=== PATIENT | female | born 1995 | race Caucasian/White ===

== ENCOUNTER → 2018-08-30 | Outpatient (CLI) | payer OTHER ==
--- NOTE | 2018-08-30 09:45 | US ---
EXAMINATION TYPE: US kidneys/renal and bladder DATE OF EXAM: 08/30/2018 COMPARISON: NONE CLINICAL HISTORY: N30.20 Other chronic cystitis without hematuria. EXAM MEASUREMENTS: Right Kidney: 10.3 x 4.1 x 5.3 cm Left Kidney: 9.9 x 5.2 x 5.0 cm Right Kidney: No hydronephrosis or masses seen Left Kidney: No hydronephrosis or masses seen Bladder: wnl Bilateral Jets seen: yes There is no evidence for hydronephrosis at this point in time. No nephrolithiasis is seen. No orion s are identified. The urinary bladder is anechoic. Bilateral ureteral jets are seen. IMPRESSION: 1. No hydronephrosis or nephrolithiasis. 2. Urinary bladder is unremarkable and anechoic. Bilateral ureteral jets are seen.
== END | disposition home or self-care (01) ==
LOC: RADUSWWP 07:12
PROVIDERS: ATTEND Urology
DX: N30.20 Other chronic cystitis without hematuria (principal)
CPT/HCPCS: 76770

== ENCOUNTER → 2018-10-24 | Outpatient (CLI) | payer OTHER ==
--- NOTE | 2018-10-24 16:44 | US ---
EXAMINATION TYPE: US transvaginal DATE OF EXAM: 10/24/2018 COMPARISON: None CLINICAL HISTORY: 23-year-old female R10.2 Pelvic Pain. Pelvic and perineal pain x 2 years. Patient o n control. TECHNIQUE: Transvaginal (TV). Transvaginal sonographic images were medically necessary to better as sess the following anatomy: Uterus, ovaries. Patient was agreeable to proceeding immediately with tra nsvaginal exam due to incorrect patient prep. Bladder was not distended. Date of LMP: 10/01/2018 FINDINGS: EXAM MEASUREMENTS: Uterus: 6.7 x 4.3 x 3.9 cm Endometrial Stripe: 0.43 cm Right Ovary: 2.7 x 1.7 x 1.7 cm for a volume of 4.0 mL Left Ovary: 2.4 x 2.1 x 1.9 cm for a volume of 4.7 mL. 1. Uterus: Anteverted. Appears wnl. 2. Endometrium: appears wnl 3. Right Ovary: appears wnl 4. Left Ovary: appears wnl Follicular change in both ovaries. 5. Bilateral Adnexa: appears wnl 6. Posterior cul-de-sac: no fluid seen IMPRESSION: Normal follicular change in the ovaries. No specific sonographic abnormality of the pelvis by transva ginal scanning.
== END ==
LOC: RADUSWWP 14:18
PROVIDERS: ATTEND Family Medicine
DX: R10.2 Pelvic and perineal pain (principal)
CPT/HCPCS: 76830

== ENCOUNTER → 2020-03-05 | Outpatient (CLI) | payer OTHER ==
--- NOTE | 2020-03-05 11:03 | USB ---
Reason for exam: clinical finding. History: Family history of breast cancer in aunt at age 50. Indicated problem(s): palpable abnormality and non-bloody discharge in the left breast. Physical Findings: Nurse did not find any significant physical abnormalities on exam. US Breast BILAT Right complete breast ultrasound includes all four quadrants, the retroareolar region and axilla. Finding demonstrates no cystic or solid lesion seen. Left complete breast ultrasound includes all four quadrants, the retroareolar region and axilla. Finding demonstrates no cystic or solid lesion seen. These results were verbally communicated with the patient and result sheet given to the patient on 03/05/20. ASSESSMENT: Negative, BI-RAD 1 RECOMMENDATION: Routine screening mammogram of both breasts at age 35. Manage patient on a clinical basis.
== END | disposition home or self-care (01) ==
LOC: RADUSWWP 09:04
PROVIDERS: ATTEND Family Medicine
DX: N64.52 Nipple discharge (principal)

== ENCOUNTER 2020-08-11 14:37 | Emergency (ER) | payer OTHER ==
[2020-08-11] MEDS ORDERED: ONDANSETRON 4 MG/2 ML VIAL IVP STA (14:48)
[2020-08-11] MEDS ORDERED: MORPHINE SULFATE 2 MG/ML SYRINGE IVP STA (14:48)
[2020-08-11] MEDS ORDERED: SODIUM CHLORIDE 0.9% 1,000 ML IV STA (14:48)
[2020-08-11] MEDS ORDERED: ASPIRIN 81 MG PO STA (14:48)
--- NOTE | 2020-08-11 14:59 | ED ---
Chest Pain HPI - General Source: patient, family, RN notes reviewed Mode of arrival: ambulatory <Casey Mcdaniels - Last Filed: 08/11/20 16:38> <Pooja Coulter - Last Filed: 08/13/20 13:39> - General Chief Complaint: Chest Pain Stated Complaint: Chest Pain Time Seen by Provider: 08/11/20 14:44 - History of Present Illness Initial Comments: Patient is a [age] female presents emergency right complaining of chest pain that started this morning. 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 She noted that when she laid still on her back the pain went away but yesterday she will the underside the pain came back. She noted that is almost as if she tries these any of the muscles in her chest the pain comes back with a vengeance. She noted that nothing is really help the pain at home except lying still. She was in no apparent distress or discomfort during the examination interview also in bed. She did state that she was a little bit anxiety due to chest pain. Her mother was with her and noted that her primary care noted that if they have ever have any chest pain to come the emergency department to get immediately evaluated for any cardiac complications such as dissection. She denied any shortness of breath, nausea vomiting diarrhea constipation fever fatigue chills weakness numbness tingling. (Casey Mcdaniels) - Related Data Allergies Allergy/AdvReac Type Severity Reaction Status Date / Time No Known Allergies Allergy Verified 08/11/20 14:42 Review of Systems ROS Other: All systems not noted in ROS Statement are negative. <Casey Mcdaniels - Last Filed: 08/11/20 16:38> ROS Other: All systems not noted in ROS Statement are negative. <Pooja Coulter - Last Filed: 08/13/20 13:39> ROS Statement: Those systems with pertinent positive or pertinent negative responses have been documented in the HPI. EKG Findings - EKG Comments: EKG Findings:: Ventricular rate 57 bpm, OK interval 130 ms, QRS duration 82 ms, QT/QTc 420/40 ms, PareT axes 57/58/38. Line sinus bradycardia with sinus arrhythmia, otherwise normal ECG. <Casey Mcdaniels - Last Filed: 08/11/20 16:38> Past Medical History Additional Past Medical History / Comment(s): [place] History of Any Multi-Drug Resistant Organisms: None Reported Past Surgical History: Ear Surgery Past Psychological History: No Psychological Hx Reported Smoking Status: Vaper Past Alcohol Use History: Daily Past Drug Use History: None Reported <Casey Mcdaniels - Last Filed: 08/11/20 16:38> General Exam Limitations: no limitations General appearance: alert, in no apparent distress Head exam: Present: atraumatic, normocephalic, normal inspection Eye exam: Present: normal appearance, PERRL, EOMI. Absent: scleral icterus, conjunctival injection, periorbital swelling ENT exam: Present: normal exam, mucous membranes moist Neck exam: Present: normal inspection. Absent: tenderness, meningismus, lymp hadenopathy Respiratory exam: Present: normal lung sounds bilaterally. Absent: respiratory distress, wheezes, rales, rhonchi, stridor Cardiovascular Exam: Present: regular rate, normal rhythm, normal heart sounds. Absent: systolic murmur, diastolic murmur, rubs, gallop, clicks GI/Abdominal exam: Present: soft, normal bowel sounds. Absent: distended, tenderness, guarding, rebound, rigid Extremities exam: Present: normal inspection, full ROM, normal capillary refill. Absent: tenderness, pedal edema, joint swelling, calf tenderness Neurological exam: Present: alert, oriented X3, CN II-XII intact Psychiatric exam: Present: normal affect, normal mood Skin exam: Present: warm, dry, intact, normal color. Absent: rash <Casey Mcdaniels - Last Filed: 08/11/20 16:38> Course Vital Signs 08/11/20 08/11/20 14:39 17:18 Temperature 98.4 F 97.9 F Pulse Rate 71 68 Respiratory 20 16 Rate Blood Pressure 141/99 128/88 O2 Sat by Pulse 99 99 Oximetry Chest Pain MDM - Wells Criteria Clinical Symptoms of DVT: (0) No No Alternative Diagnosis: (0) No Immobilization of Surgery in Previous 4 Weeks: (0) No Previous DVT/PE: (0) No Hemoptysis: (0) No - PERC Rule Heart Rate < 100: (1) Yes g: (0) No No Prior History pf DVT/PE: (0) No No Recent Trauma or Surgery: (0) No Hemoptysis: (0) No No Clinical Signs Suggesting DVT: (0) No - MELISSA Score Age > 65: (0) No Aspirin use within the Past 7 Days: (0) No <Casey Mcdaniels - Last Filed: 08/11/20 16:38> <Pooja Coulter - Last Filed: 08/13/20 13:39> - MDM Patient is a [age] female complaining of chest pain with a history of Marilia- Danlos syndrome Cardiac workup: Labs, EKG, personnel monitor, CT angiography of the chest, 1 L normal saline, pain medication, nausea medication, chewable aspirin ordered. Chest x-ray: Normal CT angiography of chest:Negative exam. No evidence of pulmonary embolism. Case discussed with Dr. Coulter, decided was located discharge patient home with follow-up to primary care. (Casey Mcdaniels) I was available for consultation in the emergency department. The history and physical exam were done by the midlevel provider. I was consulted for this patients care. I reviewed the case with the midlevel provider and based on their presentation of the patient, I agree with the assessment, medical decision making and plan of care as documented. Chart was dictated using [employer] dictation software. Attempts were made to correct any dictation errors however some typographical errors may persist. Patient was seen during a national state of emergency due to the Covid-19 pandemic. (Pooja Coulter) Disposition Is patient prescribed a controlled substance at d/c from ED?: No Time of Disposition: 16:40 <Casey Mcdaniels - Last Filed: 08/11/20 16:38> <Pooja Coulter - Last Filed: 08/13/20 13:39> Clinical Impression: Costochondritis, Chest pain Disposition: HOME SELF-CARE Condition: Stable Instructions (If sedation given, give patient instructions): Chest Pain (ED), Costochondritis (ED) Additional Instructions: Please return to the Emergency Department if symptoms worsen or any other concerns. Follow-up with primary care, we recommend getting an echocardiogram. Follow-up with pocket and pulley machine operator if you have 1. Avoid any activities that induce pain. Take [id number] pain medication as needed for management. Referrals: Jose Luis Miranda MD [Primary Care Provider] - 1-2 days
[2020-08-11 15:33] LABS: Basophils % (A) 1 %; Eosinophils # (A) 0.1 k/uL (0-0.7); Eosinophils % (A) 3 %; HCT 38.5 % (34.0-46.0); HGB 13.4 gm/dL (11.4-16.0); Lymphocytes # (A) 1.4 k/uL (1.0-4.8); Lymphocytes % (A) 27 %; MCH 31.1 pg (25.0-35.0); MCHC 34.8 g/dL (31.0-37.0); MCV 89.4 fL (80.0-100.0); Mean Platelet Volume 10.2; Monocytes # (A) 0.4 k/uL (0-1.0); Monocytes % (A) 7 %; Neutrophils # (A) 3.2 k/uL (1.3-7.7); Neutrophils % (A) 62 %; Platelet Count 191 k/uL (150-450); RBC 4.31 m/uL (3.80-5.40); RDW 12.4 % (11.5-15.5); WBC 5.2 k/uL (3.8-10.6)
[2020-08-11 15:34] LABS: Appearance,Urine Clear (Clear); Bilirubin,Urine Negative (Negative); Color,Urine Yellow; Glucose,Urine (UA) Negative (Negative); Ketones,Urine Negative (Negative); PH, Urine 7.5 (5.0-8.0); Protein,Urine Negative (Negative)
[2020-08-11 15:35] LABS: Blood,Urine Negative (Negative); Leukocyte Esterase,Urine Negative (Negative); Nitrite,Urine Negative (Negative); Urobilinogen,Urine <2.0 mg/dL (<2.0)
[2020-08-11 15:42] LABS: ALT 23 U/L (4-34); AST 32 U/L (14-36); African American GFR (CKD) >90 (>60 ml/min/1.73 sqM); Albumin 4.6 g/dL (3.5-5.0); Alkaline Phosphatase 33 U/L (38-126); Anion Gap 7 mmol/L; Blood Urea Nitrogen 11 mg/dL (7-17); Calcium 9.4 mg/dL (8.4-10.2); Carbon Dioxide 27 mmol/L (22-30); Chloride 104 mmol/L (98-107); Glucose 97 mg/dL (74-99); Magnesium 1.9 mg/dL (1.6-2.3); Non-African American GFR(CKD) >90 (>60 ml/min/1.73 sqM); Sodium 138 mmol/L (137-145); Total Bilirubin 0.9 mg/dL (0.2-1.3); Total Protein 7.5 g/dL (6.3-8.2)
[2020-08-11 15:44] LABS: Potassium 4.7 mmol/L (3.5-5.1)
--- NOTE | 2020-08-11 15:44 | XR ---
EXAMINATION TYPE: XR chest 2V DATE OF EXAM: 08/11/2020 COMPARISON: NONE HISTORY: Chest pain TECHNIQUE: FINDINGS: Heart and mediastinum are normal. Lungs are clear. Diaphragm is normal. Bony thorax appears normal. IMPRESSION: Normal chest.
[2020-08-11 15:48] LABS: D-Dimer <0.17 mg/L FEU (<0.60); Partial Thromboplastin Time 23.9 sec (22.0-30.0); Prothrombin Time 10.4 sec (9.0-12.0)
--- NOTE | 2020-08-11 16:17 | CT ---
EXAMINATION TYPE: CT angio chest DATE OF EXAM: 08/11/2020 COMPARISON: None HISTORY: Chest pain, Marilia-Danlos CT DLP: 209.7 mGycm Automated exposure control for dose reduction was used. CONTRAST: Performed with IV Contrast, patient injected with 100 mL of Isovue 370. Images obtained from the diaphragm to the floor the pelvis with IV contrast and 3-D post processed im ages. The lungs are clear of infiltrate. There is no evidence of a pulmonary mass. There is no pleural effu [place]. There is no pericardial effusion. Heart size is normal. There is no mediastinal adenopathy. There is 2 x 1.5 cm soft tissue density anterior mediastinum cons istent with residual thymic tissue. Thoracic aorta is intact. There is no aneurysm or dissection. The ascending aorta measures 2.5 cm. There is normal contrast opacification of the pulmonary arteries. There are no filling defects. Upper abdominal soft tissues are intact. The thoracic spine is intact. There is no compression fractu re. Sternum is intact. The ribs appear intact. IMPRESSION: Negative exam. No evidence of pulmonary embolism.
[2020-08-11 17:20] VITALS: BP 128/88; PULSE 68; RESP 16; TEMP 97.9
== END 2020-08-11 17:20 | disposition home or self-care (01) ==
LOC: EC 14:37
DX: M94.0 Chondrocostal junction syndrome [Tietze] (principal); Q79.60 Ehlers-Danlos syndrome, unspecified; F17.290 Nicotine dependence, other tobacco product, uncomplicated
CPT/HCPCS: 36415; 93005; 85379; 80053; 83735; 84484; 85025; 85610; 85730; 81003; 71046; 71275; 99285; 96374; 96375; J2405; J2270; Q9967

== ENCOUNTER 2021-04-24 17:09 | Emergency (ER) | payer OTHER ==
[2021-04-24 18:44] VITALS: TEMP 98.2
[2021-04-24 19:09] LABS: Appearance,Urine Cloudy (Clear); Bacteria,Urine Rare /hpf; Bilirubin,Urine Negative (Negative); Blood,Urine Negative (Negative); Color,Urine Light Yellow; Glucose,Urine (UA) Negative (Negative); Ketones,Urine Negative (Negative); Leukocyte Esterase,Urine Large (Negative); Nitrite,Urine Negative (Negative); PH, Urine 7.5 (5.0-8.0); Protein,Urine Negative (Negative); RBC,Urine 1 /hpf (0-5); Specific Gravity,Urine 1.008 (1.001-1.035); Squamous Epithelial Cell,Urine 9 /hpf (0-4); Urobilinogen,Urine <2.0 mg/dL (<2.0); WBC,Urine 17 /hpf (0-5)
[2021-04-24 20:38] LABS: Basophils % (A) 0 %; Eosinophils # (A) 0.1 k/uL (0-0.7); Eosinophils % (A) 1 %; HCT 39.5 % (34.0-46.0); Lymphocytes # (A) 2.5 k/uL (1.0-4.8); Lymphocytes % (A) 25 %; MCHC 35.4 g/dL (31.0-37.0); MCV 90.5 fL (80.0-100.0); Mean Platelet Volume 9.7; Monocytes # (A) 0.4 k/uL (0-1.0); Monocytes % (A) 5 %; Neutrophils # (A) 6.5 k/uL (1.3-7.7); Neutrophils % (A) 66 %; Platelet Count 301 k/uL (150-450); RBC 4.36 m/uL (3.80-5.40); RDW 12.7 % (11.5-15.5); WBC 9.7 k/uL (3.8-10.6)
[2021-04-24 20:48] LABS: ALT 34 U/L (4-34); AST 35 U/L (14-36); African American GFR (CKD) >90 (>60 ml/min/1.73 sqM); Albumin 4.6 g/dL (3.5-5.0); Alkaline Phosphatase 53 U/L (38-126); Amylase 92 U/L (30-110); Anion Gap 8 mmol/L; Blood Urea Nitrogen 9 mg/dL (7-17); Calcium 9.7 mg/dL (8.4-10.2); Carbon Dioxide 27 mmol/L (22-30); Chloride 102 mmol/L (98-107); Glucose 95 mg/dL (74-99); Lipase 246 U/L (23-300); Non-African American GFR(CKD) >90 (>60 ml/min/1.73 sqM); Potassium 3.9 mmol/L (3.5-5.1); Sodium 137 mmol/L (137-145); Total Bilirubin 0.9 mg/dL (0.2-1.3); Total Protein 7.5 g/dL (6.3-8.2)
[2021-04-24] MEDS ORDERED: KETOROLAC 15 MG/ML 1 ML VIAL IVP STA (20:52)
[2021-04-24] MEDS ORDERED: SODIUM CHLORIDE 0.9% 1,000 ML IV STA (20:52)
--- NOTE | 2021-04-24 21:49 | CT ---
EXAMINATION TYPE: CT abdomen pelvis w con DATE OF EXAM: 04/24/2021 COMPARISON: 05/08/2015 HISTORY: lower abd pain x [address] DLP: 673.5 mGycm Automated exposure control for dose reduction was used. TECHNIQUE: Helical acquisition of images was performed from the lung bases through the pelvis. CONTRAST: Performed without Oral Contrast and with IV Contrast, patient injected with 100 mL of Isovu e 300. FINDINGS: LUNG BASES: No significant abnormality is appreciated. LIVER/GB: No significant abnormality is appreciated. PANCREAS: No significant abnormality is seen. SPLEEN: No significant abnormality is seen. ADRENALS: No significant abnormality is seen. KIDNEYS: No significant abnormality is seen. PERITONEAL CAVITY: No pneumoperitoneum. No peritoneal fluid. RETROPERITONEAL ADENOPATHY: None visualized REPRODUCTIVE ORGANS: No significant abnormality is seen URINARY BLADDER: No significant abnormality is seen. PELVIC ADENOPATHY: None visualized. OSSEOUS STRUCTURES: No significant abnormality is seen. BOWEL: The stomach, duodenum, and small bowel have normal appearance. The colon is not dilated. Howev er, there is colonic redundancy and there is a prominent volume of colonic stool. OTHER: No acute vascular findings. IMPRESSION: NO ACUTE PROCESS. However, there is colonic redundancy and a prominent volume of colonic stool.
[2021-04-24] MEDS ORDERED: MAGNESIUM CITRATE 296 ML BOTTLE PO STA (22:08)
--- NOTE | 2021-04-24 22:09 | ED ---
General Adult HPI - General Chief complaint: Abdominal Pain Stated complaint: Abd pain, bladder pain Time Seen by Provider: 04/24/21 20:11 Source: patient, RN notes reviewed Mode of arrival: ambulatory Limitations: no limitations - History of Present Illness Initial comments: 25-year-old female presents to the emergency room for a chief complaint of abd ominal pain. Patient states for years she has had lower abdominal pain. Patient states that it feels like maybe her bladder is distended. States he feels like a pressure in her lower abdomen. Patient has seen a specialist for this in the past and told it was maybe cystitis after she was having dysuria without evidence of a urinary tract infection. However pain has been persistent. Patient states that something is not right and she finally needs answers after this long of dealing with these symptoms. Denies fevers. Denies nausea vomiting.Patient has no other complaints at this time including shortness of breath, chest pain, abdominal pain, nausea or vomiting, headache, or visual changes. - Related Data Allergies Allergy/AdvReac Type Severity Reaction Status Date / Time milk Allergy Nausea & Verified 04/24/21 18:41 Vomiting & Diarrhea egg AdvReac Nausea & Verified 04/24/21 18:41 Vomiting Review of Systems ROS Statement: Those systems with pertinent positive or pertinent negative responses have been documented in the HPI. ROS Other: All systems not noted in ROS Statement are negative. Past Medical History Additional Past Medical History / Comment(s): [place] History of Any Multi-Drug Resistant Organisms: None Reported Past Surgical History: Ear Surgery Past Psychological History: No Psychological Hx Reported Smoking Status: Vaper Past Alcohol Use History: Daily Past Drug Use History: None Reported General Exam Limitations: no limitations General appearance: alert, in no apparent distress Head exam: Present: atraumatic Eye exam: Present: normal appearance, PERRL, EOMI. Absent: scleral icterus, conjunctival injection ENT exam: Present: normal exam, mucous membranes moist Neck exam: Present: normal inspection, full ROM. Absent: tenderness Respiratory exam: Present: normal lung sounds bilaterally. Absent: respiratory distress, wheezes Cardiovascular Exam: Present: regular rate, normal rhythm, normal heart sounds GI/Abdominal exam: Present: soft, tenderness (Mild lower abdominal tenderness), normal bowel sounds. Absent: distended Course Vital Signs 04/24/21 18:41 Temperature 98.2 F Pulse Rate 73 Respiratory 18 Rate Blood Pressure 139/97 O2 Sat by Pulse 100 Oximetry Medical Decision Making - Medical Decision Making Patient's mother is requesting a CAT scan. Patient's abdomen is mildly tender. No significant tenderness. CBC CMP unremarkable. Urinalysis contaminated with squamous cells. CT abdomen and pelvis with contrast shows no acute process however there is colonic redundancy and a prominent volume of colonic stool. We will refer patient to GI and try magnesium citrate. She will return here for any worsening symptoms. - Lab Data Result diagrams: 04/24/21 20:27 04/24/21 20:27 Lab Results 04/24/21 04/24/21 04/24/21 Range/Units 18:50 18:50 20:27 WBC 9.7 (3.8-10.6) k/uL RBC 4.36 (3.80-5.40) m/uL Hgb 14.0 (11.4-16.0) gm/dL Hct 39.5 (34.0-46.0) % MCV 90.5 (80.0-100.0) fL MCH 32.0 (25.0-35.0) pg MCHC 35.4 (31.0-37.0) g/dL RDW 12.7 (11.5-15.5) % Plt Count 301 (150-450) k/uL MPV 9.7 Neutrophils % 66 % Lymphocytes % 25 % Monocytes % 5 % Eosinophils % 1 % Basophils % 0 % Neutrophils # 6.5 (1.3-7.7) k/uL Lymphocytes # 2.5 (1.0-4.8) k/uL Monocytes # 0.4 (0-1.0) k/uL Eosinophils # 0.1 (0-0.7) k/uL Basophils # 0.0 (0-0.2) k/uL Sodium (137-145) mmol/L Potassium (3.5-5.1) mmol/L Chloride (98-107) mmol/L Carbon Dioxide (22-30) mmol/L Anion Gap mmol/L BUN (7-17) mg/dL Creatinine (0.52-1.04) mg/dL Est GFR (CKD-EPI)AfAm (>60 ml/min/1.73 sqM) Est GFR (CKD-EPI)NonAf (>60 ml/min/1.73 sqM) Glucose (74-99) mg/dL Plasma Lactic Acid Alen (0.7-2.0) mmol/L Calcium (8.4-10.2) mg/dL Total Bilirubin (0.2-1.3) mg/dL AST (14-36) U/L ALT (4-34) U/L Alkaline Phosphatase (38-126) U/L Total Protein (6.3-8.2) g/dL Albumin (3.5-5.0) g/dL Amylase (30-110) U/L Lipase (23-300) U/L Urine Color Light Yellow Urine Appearance Cloudy H (Clear) Urine pH 7.5 (5.0-8.0) Ur Specific [place] 1.008 (1.001-1.035) Urine Protein Negative (Negative) Urine Glucose (UA) Negative (Negative) Urine Ketones Negative (Negative) Urine Blood Negative (Negative) Urine Nitrite Negative (Negative) Urine Bilirubin Negative (Negative) Urine Urobilinogen <2.0 (<2.0) mg/dL Ur Leukocyte Esterase Large H (Negative) Urine RBC 1 (0-5) /hpf Urine WBC 17 H (0-5) /hpf Ur Squamous Epith Cells 9 H (0-4) /hpf Urine Bacteria Rare H (None) /hpf Urine HCG, Qual Not Detected (Not Detectd) 04/24/21 04/24/21 Range/Units 20:27 20:27 WBC (3.8-10.6) k/uL RBC (3.80-5.40) m/uL Hgb (11.4-16.0) gm/dL Hct (34.0-46.0) % MCV (80.0-100.0) fL MCH (25.0-35.0) pg MCHC (31.0-37.0) g/dL RDW (11.5-15.5) % Plt Count (150-450) k/uL MPV Neutrophils % % Lymphocytes % % Monocytes % % Eosinophils % % Basophils % % Neutrophils # (1.3-7.7) k/uL Lymphocytes # (1.0-4.8) k/uL Monocytes # (0-1.0) k/uL Eosinophils # (0-0.7) k/uL Basophils # (0-0.2) k/uL Sodium 137 (137-145) mmol/L Potassium 3.9 (3.5-5.1) mmol/L Chloride 102 (98-107) mmol/L Carbon Dioxide 27 (22-30) mmol/L Anion Gap 8 mmol/L BUN 9 (7-17) mg/dL Creatinine 0.58 (0.52-1.04) mg/dL Est GFR (CKD-EPI)AfAm >90 (>60 ml/min/1.73 sqM) Est GFR (CKD-EPI)NonAf >90 (>60 ml/min/1.73 sqM) Glucose 95 (74-99) mg/dL Plasma Lactic Acid Alen 0.7 (0.7-2.0) mmol/L Calcium 9.7 (8.4-10.2) mg/dL Total Bilirubin 0.9 (0.2-1.3) mg/dL AST 35 (14-36) U/L ALT 34 (4-34) U/L Alkaline Phosphatase 53 (38-126) U/L Total Protein 7.5 (6.3-8.2) g/dL Albumin 4.6 (3.5-5.0) g/dL Amylase 92 (30-110) U/L Lipase 246 (23-300) U/L Urine Color Urine Appearance (Clear) Urine pH (5.0-8.0) Ur Specific [place] (1.001-1.035) Urine Protein (Negative) Urine Glucose (UA) (Negative) Urine Ketones (Negative) Urine Blood (Negative) Urine Nitrite (Negative) Urine Bilirubin (Negative) Urine Urobilinogen (<2.0) mg/dL Ur Leukocyte Esterase (Negative) Urine RBC (0-5) /hpf Urine WBC (0-5) /hpf Ur Squamous Epith Cells (0-4) /hpf Urine Bacteria (None) /hpf Urine HCG, Qual (Not Detectd) Disposition Clinical Impression: Chronic abdominal pain, Constipation Disposition: HOME SELF-CARE Condition: Good Instructions (If sedation given, give patient instructions): Constipation (ED), High Fiber Diet (ED) Additional Instructions: Please follow up with primary care and GI. Return to the emergency room for any worsening symptoms. Is patient prescribed a controlled substance at d/c from ED?: No Referrals: Jose Luis Miranda MD [Primary Care Provider] - 1-2 days Bharati Loredo MD [STAFF PHYSICIAN] - 1-2 days Time of Disposition: 22:08
[2021-04-24 23:03] VITALS: BP 136/89; PULSE 70; RESP 16
== END 2021-04-24 23:02 | disposition home or self-care (01) ==
LOC: EC 17:09
DX: G89.29 Other chronic pain (principal); R10.30 Lower abdominal pain, unspecified; K59.00 Constipation, unspecified; F17.290 Nicotine dependence, other tobacco product, uncomplicated; Z91.011 Allergy to milk products; Z91.012 Allergy to eggs
CPT/HCPCS: 36415; 80053; 82150; 83605; 83690; 85025; 81001; 81025; 87086; 74177; 99284; 96374; 96361; J1885; Q9967